=== PATIENT | male | born 1965 | race African-American/Black ===

== ENCOUNTER 2022-05-25 06:55 | Emergency (ER) | payer OTHER ==
[~2022-05-25] VITALS: Ht 175.3 cm; Wt 81.6 kg
--- NOTE | 2022-05-25 07:04 | NUR ---
BIBRA 881 FOR ABDOMINAL PAIN x3 DAYS. PT STATES HE "DRANK LAXATIVE" BUT NO RELEIF. PT IS AAOX4. BREATHING EVEN AND UNLABORED. AWAITING MD ORDERS.
--- NOTE | 2022-05-25 07:30 | NUR ---
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
--- NOTE | 2022-05-25 07:40 | NUR ---
URINE COLLECTED AND SENT TO LAB
--- NOTE | 2022-05-25 07:40 | NUR ---
PT TAKEN TO CT [facility]IA [facility]
[2022-05-25 07:46] LABS: BASOPHILS # (AUTO) 0.1 K/uL (0.0-0.2); BASOPHILS % (AUTO) 0.8 % (0.0-2.0); EOSINOPHILS % (AUTO) 5.1 % (0.0-6.0); HEMATOCRIT 44 % (39-51); HEMOGLOBIN 14.1 g/dL (13.5-17.5); LYMPHOCYTES # (AUTO) 0.8 K/uL (0.8-4.8); LYMPHOCYTES % (AUTO) 10.5 % (20.0-44.0); MEAN CORPUSCULAR HGB CONC 32 g/dl (31.0-36.0); MEAN CORPUSCULAR VOLUME 91 fL (80-96); MONOCYTES # (AUTO) 0.8 K/uL (0.1-1.30); MONOCYTES % (AUTO) 11.2 % (2.0-12.0); NEUTROPHILS # (AUTO) 5.4 K/uL (1.8-8.9); NEUTROPHILS % (AUTO) 72.4 % (43.0-81.0); PLATELET COUNT (AUTO) 307 K/uL (150-450); RED BLOOD CELL COUNT(AUTO) 4.79 MIL/uL (4.5-6.0); WHITE BLOOD COUNT (AUTO) 7.4 K/uL (4.3-11.0)
[2022-05-25 07:50] LABS: BILIRUBIN,URINE 1+ (NEGATIVE); COLOR,URINE YELLOW (YELLOW); LEUKOCYTE ESTERASE ,URINE NEGATIVE (NEGATIVE); NITRITE, URINE NEGATIVE (NEGATIVE); PH,URINE 6.5 (5.0-8.0); PROTEIN,URINE 2+ mg/dl (NEGATIVE); UGLUCOSE NEGATIVE (NEGATIVE); UROBILINOGEN,URINE >=8.0 EU/dL (0.2)
[2022-05-25 07:53] LABS: CREATININE 1.3 mg/dL (0.6-1.3); POTASSIUM 3.1 mmol/L (3.5-5.1)
--- NOTE | 2022-05-25 07:55 | NUR ---
PT RETURNED FROM CT [facility]IA [facility].
[2022-05-25 07:59] LABS: BILIRUBIN,DIRECT 0.8 mg/dL (0.0-0.2); BILIRUBIN,TOTAL 1.8 mg/dL (0.2-1.0)
[2022-05-25 09:03] VITALS: BP 178/106
== END 2022-05-25 09:05 | disposition home or self-care (01) ==
LOC: ER 06:58
DX: R10.84 Generalized abdominal pain (principal); I11.0 Hypertensive heart disease with heart failure; I50.9 Heart failure, unspecified; J45.909 Unspecified asthma, uncomplicated; E11.9 Type 2 diabetes mellitus without complications; Z60.2 Problems related to living alone; Z88.0 Allergy status to penicillin
CPT/HCPCS: 36415; 80048-TC; 80076-TC; 83690-TC; 85025-TC